=== PATIENT | male | born 1965 | race Asian ===

== ENCOUNTER 2019-03-12 23:40 | Emergency (ER) | payer BC ==
[~2019-03-12] VITALS: Ht 175.3 cm; Wt 90.7 kg
[2019-03-12 23:45] VITALS: BP_SYST 161
--- NOTE | 2019-03-12 23:55 | NUR ---
Patient to ER bed 1 to gown for evaluation. Side rails up. Report given to FABI PRAKASH.
--- NOTE | 2019-03-13 00:20 | NUR ---
Patient complains of high blood pressure a few hours ago, 202/121. Pt states he felt pain to the left side of his neck, occipital, and bilateral synagogue. Pt denies any chest pain, SOB, BREEN, N/V. Pt states that he took an extra 80mg of volsartan around 10pm for his BP. Current BP is 163/104. No other injuries/complaints per patient or noted.
--- NOTE | 2019-03-13 00:21 | NUR ---
ER Dr. Braun at bedside examining patient.
[2019-03-13 01:37] LABS: CALCIUM 8.5 mg/dL (8.4-11.0); CREATININE 1.05 mg/dL (0.55-1.30); POTASSIUM 3.5 mmol/L (3.5-5.1)
[2019-03-13 01:42] LABS: ALBUMIN 3.8 g/dL (3.4-4.8); TOTAL BILIRUBIN 0.2 mg/dL (0.0-1.0)
--- NOTE | 2019-03-13 02:47 | NUR ---
Pt resting in ED bed comfortably. No distress at this time.
[2019-03-13 02:55] VITALS: BP_SYST 145
--- NOTE | 2019-03-13 02:55 | NUR ---
Patient given written and verbal discharge instructions and verbalizes understanding. ER MD discussed with patient the results and treatment provided. Patient in stable condition. ID arm band removed. NO IV No RX given. Patient educated on pain management and to follow up with PMD. Pain Scale 0/10. Opportunity for questions provided and answered.
== END 2019-03-13 02:55 | disposition home or self-care (01) ==
LOC: SED 23:40
DX: I10 Essential (primary) hypertension (principal)
CPT/HCPCS: 36415; 80053; 93005; 99283

== ENCOUNTER 2020-11-12 21:32 | Emergency (ER) | payer BC ==
[~2020-11-12] VITALS: Ht 175.3 cm; Wt 95.3 kg
[2020-11-12 21:40] VITALS: BP_SYST 179
[2020-11-12] MEDS ORDERED: LIDOCAINE 1% 10 MG/ML, 20 ML MDV INJ ONE (23:30)
[2020-11-12] MEDS ORDERED: LIDOCAINE 1%, 20 ML MDV 20 ML ONE (23:31)
[2020-11-12] MEDS ORDERED: METR500T PO (23:32)
[2020-11-12] MEDS ORDERED: SULF1TAB48 PO (23:32)
[2020-11-12] MEDS ORDERED: DIPH-TET-PERTUS Vaccine 0.5 ML VIAL (ADACEL) I.M. ONE (23:45)
[2020-11-13] MEDS ORDERED: SULFAMETHOXAZOLE/TRIMETHOPR DS 1 TABLET PO ONE (00:15)
[2020-11-13] MEDS ORDERED: metroNIDAZOLE 500 MG TABLET PO ONE (00:15)
[2020-11-13] MEDS ORDERED: BACITRACIN 1 GM OINT TP ONE (00:41)
[2020-11-13 00:50] VITALS: BP_SYST 130
== END 2020-11-13 00:50 | disposition home or self-care (01) ==
LOC: SED 21:32
DX: S61.452A Open bite of left hand, initial encounter (principal); I10 Essential (primary) hypertension; Z88.0 Allergy status to penicillin; Z79.899 Other long term (current) drug therapy; W54.0XXA Bitten by dog, initial encounter; Y93.89 Activity, other specified; Y92.89 Other specified places as the place of occurrence of the external cause; Y99.8 Other external cause status
CPT/HCPCS: 12001; 90471; 90715; 99283; J2001

== ENCOUNTER 2020-11-25 00:18 | Emergency (ER) | payer BC ==
[~2020-11-25] VITALS: Ht 175.3 cm; Wt 90.7 kg
[~2020-11-25 00:18] MED LIST: METR500T PO; SULF1TAB48 PO
[2020-11-25 00:40] VITALS: BP_SYST 178
[2020-11-25 01:28] LABS: CALCIUM 8.6 mg/dL (8.4-11.0); CREATININE 1.02 mg/dL (0.55-1.30); POTASSIUM 3.8 mmol/L (3.5-5.1)
[2020-11-25 01:34] LABS: ALBUMIN 3.6 g/dL (3.4-4.8); TOTAL BILIRUBIN 0.3 mg/dL (0.0-1.0)
[2020-11-25] MEDS ORDERED: AMLO5TAB4 PO (01:37)
[2020-11-25] MEDS ORDERED: VALS80TA2 PO (01:37)
[2020-11-25] MEDS ORDERED: ROSU10TA2 PO (01:37)
[2020-11-25 01:38] LABS: BASOPHILS % (AUTO) 0.5 % (0.0-2.0); EOSINOPHILS # (AUTO) 0.1 K/uL (0.0-0.4); EOSINOPHILS % (AUTO) 2.5 % (0.0-4.0); HEMATOCRIT 37.5 % (36-54); HEMOGLOBIN 12.1 g/dL (14.0-18.0); LYMPHOCYTES # (AUTO) 2.5 K/uL (1.0-5.5); LYMPHOCYTES % (AUTO) 47.6 % (20.5-51.5); MEAN CORPUSCULAR HEMOGLOBIN 26 pg (27-31); MEAN CORPUSCULAR HGB CONC 32 % (32-36); MEAN CORPUSCULAR VOLUME 81 fL (79.0-98.0); MONOCYTES # (AUTO) 0.3 K/uL (0.0-1.0); MONOCYTES % (AUTO) 5.3 % (1.7-9.3); NEUTROPHILS # (AUTO) 2.3 K/uL (1.8-7.7); NEUTROPHILS % (AUTO) 44.1 % (40.0-70.0); PLATELET COUNT (AUTO) 213 K/uL (130-430); RED BLOOD CELL COUNT(AUTO) 4.63 MIL/uL (4.2-6.2); RED CELL DISTRIBUTION WIDTH 13.9 % (9.0-15.0); WHITE BLOOD COUNT (AUTO) 5.3 K/uL (4.8-10.8)
[2020-11-25] MEDS ORDERED: MORPHINE 4 MG INJ. 4 MG/ML VIAL IVP ONE (03:00)
[2020-11-25] MEDS ORDERED: LORazepam 2 MG/ML VIAL IVP ONE (03:00)
[2020-11-25] MEDS ORDERED: NACL 0.9% 500 ML IV ONE (03:15)
[2020-11-25] MEDS ORDERED: CLON-315 PO (04:14)
[2020-11-25 04:31] VITALS: BP_SYST 150
== END 2020-11-25 04:32 | disposition home or self-care (01) ==
LOC: SED 00:18
DX: I10 Essential (primary) hypertension (principal); R51.9 Headache, unspecified; Z88.0 Allergy status to penicillin; Z79.899 Other long term (current) drug therapy
CPT/HCPCS: 36415; 71045; 80053; 84484; 85025; 93005; 96374; 96375; 99285; J2060; J2270